=== PATIENT | male | born 1985 ===

== ENCOUNTER 2018-08-13 21:22 | Emergency (ER) | payer MEDICAID, OTHER ==
[2018-08-13 21:32] VITALS: RESP 16
--- NOTE | 2018-08-13 22:07 | ED PDOC ---
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 When pt. was with police pt. verbalized having suicidal ideations. Pt. states he still has suicidal thoughts but does not have a plan. Pt. states he has unable to determine what's real and what's fake. Admits to taking methamphanmines today. Denies HI, chest pain, SOB, fever, suicidal plan. Past Medical History Reviewed: Historical Data, Nursing Documentation, Vital Signs Vital Signs: Last Vital Signs Temp 99.2 F 08/13/18 21:24 Pulse 126 H 08/13/18 21:24 Resp 16 08/13/18 21:24 BP 131/86 08/13/18 21:24 Pulse Ox 100 08/13/18 21:24 - Family History Family History: States: No Known Family Hx - Allergies Allergies/Adverse Reactions: Allergies Allergy/AdvReac Type Severity Reaction Status Date / Time No Known Allergies Allergy Verified 08/13/18 21:24 Review of Systems ROS Statement: Except As Marked, All Systems Reviewed And Found Negative Physical Exam - Physical Exam Appears: Positive for: Well, Non-toxic, No Acute Distress Head Exam: Positive for: ATRAUMATIC, NORMAL INSPECTION, NORMOCEPHALIC Skin: Positive for: Normal Color, Warm, DRY Eye Exam: Positive for: Normal appearance, EOMI, PERRL ENT: Positive for: Normal ENT Inspection Cardiovascular/Chest: Positive for: Regular Rate, Rhythm Respiratory: Positive for: Normal Breath Sounds Gastrointestinal/Abdominal: Positive for: Soft. Negative for: Tenderness Back: Positive for: Normal Inspection. Negative for: L CVA Tenderness, R CVA Tenderness Neurologic/Psych: Positive for: Alert, Oriented, Mood/Affect (appears apprehensive to answer questions but is cooperative) - ECG O2 Sat by Pulse Oximetry: 100 Disposition - Clinical Impression Clinical Impression: Drug abuse, Suicidal ideation - Patient ED Disposition Is Patient to be Admitted: Transfer of Care (Signed out to Memo MANDEL pending crisis disposition and final evaluation) - Disposition Disposition Time: 23:08 Condition: STABLE Forms: [email or web address] (Maltese)
[2018-08-14 01:50] LABS: BARBITURATES, UR NEGATIVE (NEGATIVE); BENZODIAZEPINES, UR NEGATIVE (NEGATIVE); OPIATES, UR NEGATIVE (NEGATIVE); PHENCYCLIDINE, UR NEGATIVE (NEGATIVE)
--- NOTE | 2018-08-14 02:37 | ED PDOC ---
- ECG O2 Sat by Pulse Oximetry: 100 - Progress ED Course And Treament: urine tox screen positive for amphetamine seen by crisis d/w Dr. Yancey diagnosis substance induced mood disorder Disposition - Clinical Impression Clinical Impression: Drug abuse, Suicidal ideation - POA Present On Arrival: None - Disposition Disposition: Routine/Home Disposition Time: 03:56 Condition: STABLE Instructions: Drug Abuse and Drug Addiction (DC)
[2018-08-14 07:07] VITALS: BP 101/56; PULSE 82; TEMP 98.4; O2SAT 98
== END 2018-08-14 07:22 | disposition home or self-care (01) ==
LOC: H.ER 21:22
DX: R45.851 Suicidal ideations (principal); F19.10 Other psychoactive substance abuse, uncomplicated
CPT/HCPCS: 99284; G0480

== ENCOUNTER 2018-08-14 10:19 | Emergency (ER) | payer MEDICAID, OTHER ==
[2018-08-14 10:52] VITALS: RESP 18; O2SAT 100
[2018-08-14 10:58] VITALS: PULSE 104
[2018-08-14 12:31] LABS: BASO # 0.2 K/uL (0.0-0.2); BASO % 1.3 % (0.0-2.0); EOS % 0.1 % (0.0-4.0); LYMPH % 18.9 % (20.0-40.0); MEAN CELL VOLUME 89.2 fl (80.0-94.0); MEAN CORPUSCULAR HEMOGLOBIN 30.6 pg (27.0-31.0); MEAN CORPUSCULAR HGB CONC 34.3 g/dL (33.0-37.0); MEAN PLATELET VOLUME 7.9 fl (7.2-11.7); MONO # 1.9 K/uL (0.0-0.8); MONO % 12.2 % (0.0-10.0); NEUT # 10.6 K/uL (1.8-7.0); NEUT % 67.5 % (50.0-75.0); RBC 3.94 Mil/uL (4.40-5.90); RED CELL DISTRIBUTION WIDTH 13.2 % (11.5-14.5); WHITE BLOOD COUNT 15.7 K/uL (4.8-10.8)
[2018-08-14 12:44] LABS: ALB/GLOB RATIO 0.9 (1.0-2.1); ALBUMIN 3.6 g/dL (3.5-5.0); ALT/SGPT 13 U/L (21-72); AST/SGOT 19 U/L (17-59); BLOOD UREA NITROGEN 15 mg/dl (9-20); CALCIUM 8.9 mg/dL (8.4-10.2); GFR NON-AFRICAN AMERICAN > 60
--- NOTE | 2018-08-14 14:27 | CT ---
Date of service: 08/14/2018 PROCEDURE: CT Abdomen and Pelvis without intravenous contrast HISTORY: abdominal pain, elevated wbc COMPARISON: None. TECHNIQUE: Unenhanced. Neither IV nor oral contrast administered Radiation dose: Total exam DLP = 227.28 mGy-cm. This CT exam was performed using one or more of the following dose reduction techniques: Automated exposure control, adjustment of the mA and/or kV according to patient size, and/or use of iterative reconstruction technique. FINDINGS: LOWER THORAX: Unremarkable. LIVER: Unremarkable. No gross lesion or ductal dilatation. GALLBLADDER AND BILE DUCTS: Unremarkable. PANCREAS: Unremarkable. No gross lesion or ductal dilatation. SPLEEN: Unremarkable. ADRENALS: Unremarkable. No mass. KIDNEYS AND URETERS: No hydronephrosis. No solid mass. Nonobstructing right renal calculi none larger than 2 mm. Simple cyst right kidney 2.3 x 3.1 x 4.6 cm VASCULATURE: Unremarkable. No aortic aneurysm. No atherosclerotic calcification or mural plaque present. BOWEL: Constipation without fecal impaction or obstruction. APPENDIX: No abnormalities to suggest acute appendicitis. No right lower quadrant inflammatory processes identified. PERITONEUM: Unremarkable. No free fluid. No free air. LYMPH NODES: Unremarkable. No enlarged lymph nodes. BLADDER: Unremarkable. REPRODUCTIVE: Unremarkable. BONES: No acute fracture. OTHER FINDINGS: None. IMPRESSION: No significant or acute findings to account for/ related to the clinical presentation. Additional benign and/or incidental findings described above.
--- NOTE | 2018-08-14 15:32 | ED PDOC ---
HPI: Abdomen Time Seen by Provider: 08/14/18 10:41 Chief Complaint (Nursing): Abdominal Pain Chief Complaint (Provider): Right sided abdominal pain Location Of Pain/Discomfort: RUQ, RLQ Additional Complaint(s): 33 yo male presents for evaluation of right sided pain. PT being difficult. When asked how long he has had pain pt reports "over 24 hours". When asked about past medical history pt states I should read his chart from last night. PT asking for food during physical exam. Denies N/V/D. PT discharged this am from ER Past Medical History Reviewed: Historical Data, Nursing Documentation, Vital Signs Vital Signs: Last Vital Signs Temp 99.3 F 08/14/18 10:57 Pulse 104 H 08/14/18 10:57 Resp 18 08/14/18 10:35 BP 98/61 L 08/14/18 10:57 Pulse Ox 100 08/14/18 10:35 - Medical History PMH: HIV (As per pt) Denies: Diabetes, Hepatitis, HTN, Seizures, Sexually Transmitted Disease - Surgical History Surgical History: No Surg Hx - Family History Family History: States: No Known Family Hx - Living Arrangements Living Arrangements: With Family - Social History Current smoker - smoking cessation education provided: No - Allergies Allergies/Adverse Reactions: Allergies Allergy/AdvReac Type Severity Reaction Status Date / Time No Known Allergies Allergy Verified 08/14/18 10:34 Review of Systems ROS Statement: Except As Marked, All Systems Reviewed And Found Negative Constitutional: Negative for: Fever, Chills ENT: Negative for: Ear Pain, Ear Discharge Cardiovascular: Negative for: Chest Pain, Palpitations Respiratory: Negative for: Cough, Shortness of Breath Gastrointestinal: Positive for: Abdominal Pain. Negative for: Nausea, Vomiting, Diarrhea Physical Exam - Reviewed Nursing Documentation Reviewed: Yes Vital Signs Reviewed: Yes - Physical Exam Appears: Positive for: Well, Non-toxic, No Acute Distress Head Exam: Positive for: ATRAUMATIC, NORMAL INSPECTION, NORMOCEPHALIC Skin: Positive for: Normal Color, Warm, DRY Eye Exam: Positive for: Normal appearance ENT: Positive for: Normal ENT Inspection Neck: Positive for: Normal, Painless ROM Cardiovascular/Chest: Positive for: Regular Rate, Rhythm Respiratory: Positive for: Normal Breath Sounds. Negative for: Accessory Muscle Use, Respiratory Distress Gastrointestinal/Abdominal: Positive for: Normal Exam, Soft. Negative for: Tenderness Back: Positive for: Normal Inspection Extremity: Positive for: Normal ROM Neurologic/Psych: Positive for: Alert, Oriented - Laboratory Results Result Diagrams: 08/14/18 12:20 08/14/18 12:20 - ECG O2 Sat by Pulse Oximetry: 100 Pulse Ox Interpretation: Normal Medical Decision Making Medical Decision Making: Elevated WBC - CT ordered. CT normal. Disposition - Clinical Impression Clinical Impression: Abdominal pain - Patient ED Disposition Is Patient to be Admitted: No Counseled Patient/Family Regarding: Studies Performed, Diagnosis, Need For Followup - Disposition Disposition: Routine/Home Disposition Time: 15:34 Condition: GOOD Instructions: Acute Abdomen (Belly Pain), Adult (DC)
[2018-08-14 16:04] VITALS: BP 110/64; TEMP 99
== END 2018-08-14 16:08 | disposition home or self-care (01) ==
LOC: H.ER 10:19
DX: R10.9 Unspecified abdominal pain (principal)

== ENCOUNTER 2018-09-24 14:16 | Emergency (ER) | payer OTHER ==
[2018-09-24 14:24] VITALS: BP 128/80; PULSE 117; RESP 18; TEMP 98.2; O2SAT 99
--- NOTE | 2018-09-24 14:50 | ED PDOC ---
HPI: General Adult Time Seen by Provider: 09/24/18 14:47 Chief Complaint (Nursing): Psychiatric Evaluation History Per: Patient (Brought by police for evaluation, found wandering in building confused. Pt is not under arrest. Pt does not wish to be evaluated and does not wish to stay in ED for further assessment. Pt is awake alert and oriented and denies SI and HI.) Past Medical History Vital Signs: Last Vital Signs Temp 98.2 F 09/24/18 14:19 Pulse 117 H 09/24/18 14:19 Resp 18 09/24/18 14:19 BP 128/80 09/24/18 14:19 Pulse Ox 99 09/24/18 14:19 - Medical History PMH: HIV (As per pt) Denies: Diabetes, Hepatitis, HTN, Seizures, Sexually Transmitted Disease - Family History Family History: States: Unknown Family Hx - Immunization History Hx Tetanus Toxoid Vaccination: No Hx Influenza Vaccination: No Hx Pneumococcal Vaccination: No - Home Medications Home Medications: Ambulatory Orders Medication Instructions Recorded No Known Home Med 09/23/18 - Allergies Allergies/Adverse Reactions: Allergies Allergy/AdvReac Type Severity Reaction Status Date / Time No Known Allergies Allergy Verified 09/23/18 09:36 Review of Systems Neurological: Positive for: Confusion Psych: Negative for: Suicidal ideation Physical Exam - Physical Exam Appears: Positive for: Non-toxic, No Acute Distress Skin: Positive for: Normal Color, Warm, DRY Eye Exam: Positive for: Normal appearance Neurologic/Psych: Positive for: Alert, Oriented - ECG O2 Sat by Pulse Oximetry: 99 Medical Decision Making Medical Decision Making: Awake alert oriented x 3 Denies suicidal or homicidal ideation. Pt not under arrest. Will discharge with outpt f/u. Disposition - Clinical Impression Clinical Impression: Confusion - Patient ED Disposition Is Patient to be Admitted: No Counseled Patient/Family Regarding: Diagnosis, Need For Followup - Disposition Referrals: [facility] [Outside] Disposition: Routine/Home Disposition Time: 14:50 Condition: FAIR Additional Instructions: Return to ED if you develop headaches dizziness or become confused.
== END 2018-09-24 15:00 | disposition home or self-care (01) ==
LOC: H.ER 14:16
DX: R41.0 Disorientation, unspecified (principal)

== ENCOUNTER 2018-11-28 04:26 | Emergency (ER) | payer OTHER ==
[2018-11-28 04:35] VITALS: BP 135/91; TEMP 98.7
--- NOTE | 2018-11-28 04:55 | ED PDOC ---
HPI: General Adult Time Seen by Provider: 11/28/18 04:33 Chief Complaint (Nursing): Medical Clearance Chief Complaint (Provider): Medical Clearance History Per: Patient, Other (Police Department) History/Exam Limitations: no limitations Onset/Duration Of Symptoms: Mins Additional Complaint(s): 33 year old male presents to the ED by police for medical and psychiatric clearance for incarceration. Patient is under arrest. He admits to substance abuse including crystal meth. Denies SI or HI. PMD: none Past Medical History Reviewed: Historical Data, Nursing Documentation, Vital Signs Vital Signs: Last Vital Signs Temp 98.7 F 11/28/18 04:33 Pulse 107 H 11/28/18 04:33 Resp 19 11/28/18 04:33 BP 135/91 H 11/28/18 04:33 Pulse Ox 100 11/28/18 04:33 - Medical History PMH: HIV (As per pt) Denies: Diabetes, Hepatitis, HTN, Seizures, Sexually Transmitted Disease - Surgical History Surgical History: No Surg Hx - Family History Family History: States: Unknown Family Hx - Social History Drugs: Methamphetamine - Immunization History Hx Tetanus Toxoid Vaccination: No Hx Influenza Vaccination: No Hx Pneumococcal Vaccination: No - Home Medications Home Medications: Ambulatory Orders Medication Instructions Recorded No Known Home Med 09/23/18 - Allergies Allergies/Adverse Reactions: Allergies Allergy/AdvReac Type Severity Reaction Status Date / Time No Known Allergies Allergy Verified 09/23/18 09:36 Review of Systems ROS Statement: Except As Marked, All Systems Reviewed And Found Negative Psych: Negative for: Suicidal ideation (or homicidal ideation) Physical Exam - Reviewed Nursing Documentation Reviewed: Yes Vital Signs Reviewed: Yes - Physical Exam Appears: Positive for: No Acute Distress Head Exam: Positive for: ATRAUMATIC, NORMOCEPHALIC Skin: Positive for: Normal Color, Warm, Dry Eye Exam: Positive for: Normal appearance Neck: Positive for: Normal, Painless ROM Extremity: Positive for: Normal ROM Neurological/Psych: Positive for: Alert, Oriented - ECG O2 Sat by Pulse Oximetry: 100 (RA) Pulse Ox Interpretation: Normal Medical Decision Making Medical Decision Making: Initial Impression: Medical and psychiatric clearance as requested by police Initial Plan: --Crisis evaluation 04:58 Patient has been evaluated by crisis and is cleared. Patient is stable for discharge. Scribe Attestation: Documented by Jamar Thao acting as a scribe for Ronaldo Peter MD. Provider Scribe Attestation: All medical record entries made by the Scribe were at my direction and personally dictated by me. I have reviewed the chart and agree that the record accurately reflects my personal performance of the history, physical exam, medical decision making, and the department course for this patient. I have also personally directed, reviewed, and agree with the discharge instructions and disposition. Disposition - Clinical Impression Clinical Impression: Drug abuse, Adjustment disorder - Patient ED Disposition Is Patient to be Admitted: No Doctor Will See Patient In The: Office Counseled Patient/Family Regarding: Studies Performed, Diagnosis, Need For Followup - Disposition Disposition: Discharged/Transfer to Law Enforcement Disposition Time: 04:58 Condition: GOOD Additional Instructions: Patient is medically and psychiatrically cleared for incarceration. Instructions: Adjustment Disorder, Drug Abuse and Drug Addiction (DC)
[2018-11-28 05:26] VITALS: PULSE 93; RESP 17; O2SAT 99
== END 2018-11-28 05:25 ==
LOC: H.ER 04:26
DX: F19.10 Other psychoactive substance abuse, uncomplicated (principal); F43.20 Adjustment disorder, unspecified